=== PATIENT | male | born 1995 | race African-American/Black ===

== ENCOUNTER 2018-03-10 16:33 | Day surgery (SDC) | payer OTHER ==
[~2018-03-10 16:33] MED LIST: CEFAZOLIN 2 GM/D5W RTU 2 GM/50 ML RTUPB IV ONE; CEFAZOLIN 2 GM/D5W RTU 2 GM/50 ML RTUPB IV PRN; DEXAMETHASONE SOD PHOSPHATE INJ 4 MG/1 ML VIAL ONE; KETOROLAC TROMETHAMINE 60 MG/2 ML SDV ONE; METOCLOPRAMIDE HCL INJ/PF 10 MG/2 ML SDV ONE; ONDANSETRON HCL INJ/PF 4 MG/2 ML SDV ONE; SUCCINYLCHOLINE CHLORIDE INJ 200 MG/10 ML VIAL ONE
[2018-03-10] MEDS ORDERED: MIDAZOLAM 2 MG/2 ML INJ ONE (19:23)
[2018-03-10] MEDS ORDERED: HYDROMORPHONE HCL INJ/PF 2 MG/ML AMPULE ONE (19:23)
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
[2018-03-10] MEDS ORDERED: PROPOFOL INJ 200 MG/20 ML VIAL IV ONE (19:24)
[2018-03-10] MEDS ORDERED: ACETAMINOPHEN 1,000 MG/100 ML RTUPB IV ONE (19:24)
[2018-03-10] MEDS ORDERED: BUPIVACAINE HCL 0.5 % INJ/PF 30 ML SDV ONE (19:32)
[2018-03-10] MEDS ORDERED: DIPHENHYDRAMINE HCL 50 MG/ML VIAL IV PRN (20:01)
[2018-03-10] MEDS ORDERED: FENTANYL CITRATE INJ/PF 100 MCG/2 ML AMPUL IV PRN ×3 (20:01)
[2018-03-10] MEDS ORDERED: ONDANSETRON HCL INJ/PF 4 MG/2 ML SDV IV PRN ×2 (20:01→20:22)
[2018-03-10] MEDS ORDERED: OXYCODONE-ACETAMINOPHEN 5-325 MG TABLET PO PRN ×3 (20:01→20:22)
[2018-03-10] MEDS ORDERED: MEPERIDINE HCL/PF INJ 25 MG/1 ML DISP.SYRIN IV PRN (20:01)
[2018-03-10] MEDS ORDERED: PROMETHAZINE HCL INJ 25 MG/1 ML VIAL IV PRN ×2 (20:01)
[2018-03-10] MEDS ORDERED: MORPHINE SULFATE 10 MG/ML INJ IV PRN (20:22)
--- NOTE | 2018-03-10 20:23 | Discharge Summary ---
Discharge Summary (SDC) - Discharge Final Diagnosis: Right thumb intra-articular metacarpal base fracture Date of Surgery: 03/10/18 Discharge Date: 03/10/18 Condition: Good Treatment or Instructions: Schedule Follow Up w/ Dr. Jaydon Nesbitt @ [facility] for Surgery to be seen in 10-14 days or as scheduled [place]: [place]: [place]: Ice and elevate Keep splint clean/dry/intact. If your fingers become numb please unwrap the Medardo wrap but leave the splint in place, if the sensation does not return within 30 minutes please return to the emergency department. May begin finger range of motion attempting to make full fist, excluding the thumb Please use ibuprofen (Motrin or Advil) 600-800 mg every 8 hours as needed for pain or fever DO NOT TAKE w/ TORADOL may use once TORADOL complete. You may also use acetaminophen (Tylenol) 1000 mg every 4-6 hours as needed for pain or fever. Please be aware that many medications contain acetaminophen, do not exceed a total of 1000 mg of acetaminophen every 6 hours. If ibuprofen and acetaminophen are not sufficient for your pain you may take the Percocet/[place]. Please be aware that the Percocet/[place] does contain Tylenol. Stool softener of choice when on pain medication. Prescriptions: Ketorolac Tromethamine [Toradol 10 mg Tablet] 10 mg PO Q8HP PRN #12 tablet PRN Reason: Oxycodone HCl/Acetaminophen [Percocet 5-325 mg Tablet] 1 tab PO Q6 #25 tab Discharge Diet: As Tolerated Respiratory Treatments at Home: Deep Breathing/Coughing Discharge Activity: No Lifting Over 10 Pounds, No Lifting/Push/Pulling Report the Following to Your Physician Immediately: Fever over 101 Degrees, Unusual Bleeding, Redness, Swelling, Warmth
[2018-03-10 22:01] VITALS: BP 144/88
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
== END 2018-03-10 22:20 | disposition home or self-care (01) ==
LOC: OROUT 16:33 → EDSEX 18:00 → 2N 21:02 → OROUT 22:20
PROVIDERS: ATTEND Orthopaedic Surgery
DX: S62.211A Bennett's fracture, right hand, initial encounter for closed fracture (principal); Y09 Assault by unspecified means; M79.644 Pain in right finger(s)
CPT/HCPCS: 73140; 26650; C1713; J2250; J3490; J1100; J1885; J2765; J1170; J0330; J2405; J2704; J0690; J0131; 01810